=== PATIENT | female | born 1995 | race Caucasian/White ===

== ENCOUNTER 2017-07-09 09:36 | Inpatient (IN) | payer BC, MEDICAID ==
[2017-07-09] MEDS ORDERED: Misoprostol 200 MCG Tab PO PRN (11:47)
[2017-07-09] MEDS ORDERED: Lidocaine 1% 50 ML MDV INJECT PRN (11:47)
[2017-07-09] MEDS ORDERED: Sodium Chloride 0.9% 10 ML Syringe FLUSH PRN ×2 (11:47→12:45)
[2017-07-09] MEDS ORDERED: Water For Irrigation,Sterile 1,000 ML Container IRR PRN (11:47)
[2017-07-09] MEDS ORDERED: Nalbuphine 10 MG/1 ML Vial IVPUSH PRN (11:47)
[2017-07-09] MEDS ORDERED: Methylergonovine 0.2 MG/1 ML Amp IM PRN (11:47)
[2017-07-09] MEDS ORDERED: Butorphanol 1 MG/ML SDV IVPUSH PRN (11:47)
[2017-07-09] MEDS ORDERED: Carboprost Tromethamine 250 MCG/1 ML Amp IM PRN (11:47)
[2017-07-09] MEDS ORDERED: Sodium Chloride 0.9% 2.5 ML Syringe FLUSH PRN ×2 (11:47→12:45)
[2017-07-09] MEDS ORDERED: Oxytocin/0.9 % Sodium Chloride 30 UNIT/500 ML BAG IV SCH ×2 (12:00→20:00)
[2017-07-09] MEDS ORDERED: Ampicillin 2 GM in Sodium Chloride 0.9% 100 ML IV ONE (12:15)
[2017-07-09] MEDS ORDERED: Magnesium Sulfate/Water 4 GM in Premix Bag 1 BAG IV ONE (12:45)
[2017-07-09] MEDS ORDERED: Calcium Gluconate 10% 1 GM/10 ML SDV IV PRN (12:45)
[2017-07-09] MEDS: Lactated Ringers 1,000 ML IV SCH ×2 (12:46→16:25)
[2017-07-09 12:48] LABS: CHLORIDE,CL 105 mmol/L (98-110); SODIUM,NA 137 mmol/L (136-146)
[2017-07-09] MEDS ORDERED: Magnesium Sulfate/Water 100 ML ONE (13:09)
--- NOTE | 2017-07-09 13:10 | PCM.PREANE ---
Preanesthetic Assessment - Anesthesia/Transfusion/Family Hx Anesthesia History: Prior Anesthesia Without Reaction - Review of Systems General: No Symptoms Pulmonary: No Symptoms Cardiovascular: No Symptoms Gastrointestinal: No Symptoms Neurological: No Symptoms Other: Reports: None - Physical Assessment Height: 5 ft 4 in Weight: 73.936 kg ASA Class: 2 Mental Status: Alert & Oriented x3 Airway Class: Mallampati = 2 Dentition: Reports: Normal Dentition Thyro-Mental Finger Breadths: 3 Mouth Opening Finger Breadths: 3 ROM/Head Extension: Full Lungs: Clear to Auscultation, Normal Respiratory Effort Cardiovascular: Regular Rate, Regular Rhythm - Lab Values: Laboratory Last Values WBC 14.29 K/uL (4.0-11.0) H 07/09/17 12:18 RBC 5.06 M/uL (4.30-5.90) 07/09/17 12:18 Hgb 13.3 g/dL (12.0-16.0) 07/09/17 12:18 Hct 41.0 % (36.0-46.0) 07/09/17 12:18 MCV 81.0 fL (80.0-98.0) 07/09/17 12:18 MCH 26.3 pg (27.0-32.0) L 07/09/17 12:18 MCHC 32.4 g/dL (31.0-37.0) 07/09/17 12:18 RDW Std Deviation 40.5 fl (28.0-62.0) 07/09/17 12:18 RDW Coeff of Ulisses 14 % (11.0-15.0) 07/09/17 12:18 Plt Count 269 K/uL (150-400) 07/09/17 12:18 MPV 10.40 fL (7.40-12.00) 07/09/17 12:18 Nucleated RBC % 0.0 /100WBC 07/09/17 12:18 Nucleated RBCs # 0 K/uL 07/09/17 12:18 INR 0.87 (0.86-1.11) 07/09/17 12:18 Fibrinogen 384 mg/dL (215-411) 07/09/17 12:18 Sodium 137 mmol/L (136-146) 07/09/17 12:18 Potassium 3.8 mmol/L (3.5-5.1) 07/09/17 12:18 Chloride 105 mmol/L (98-110) 07/09/17 12:18 Carbon Dioxide 20 mmol/L (21-31) L 07/09/17 12:18 BUN 7 mg/dL (6.0-23.0) 07/09/17 12:18 Creatinine 0.6 mg/dL (0.6-1.5) 07/09/17 12:18 Est Cr Clr Drug Dosing 128.08 mL/min 07/09/17 12:18 Estimated GFR (MDRD) > 60.0 ml/min 07/09/17 12:18 Glucose 103 mg/dL (60-110) 07/09/17 12:18 Uric Acid 4.8 mg/dL (2.1-6.2) 07/09/17 12:18 Calcium 9.1 mg/dL (8.8-10.8) 07/09/17 12:18 Total Bilirubin 0.3 mg/dL (0.1-1.5) 07/09/17 12:18 Direct Bilirubin 0.2 mg/dL (0.0-0.5) 07/09/17 12:18 Indirect Bilirubin 0.1 mg/dL (0.0-1.0) 07/09/17 12:18 AST 17 IU/L (5-40) 07/09/17 12:18 ALT 14 IU/L (8-54) 07/09/17 12:18 Alkaline Phosphatase 176 (40-150) H 07/09/17 12:18 Lactate Dehydrogenase 179 IU/L (125-220) 07/09/17 12:18 Total Protein 6.4 g/dL (6.0-8.0) 07/09/17 12:18 Albumin 3.3 g/dL (3.5-5.0) L 07/09/17 12:18 Globulin 3.1 g/dL (2.0-3.5) 07/09/17 12:18 Albumin/Globulin Ratio 1.1 (1.3-2.8) L 07/09/17 12:18 Urine Color YELLOW 07/09/17 10:45 Urine Appearance CLEAR 07/09/17 10:45 Urine pH 6.0 (5.0-8.0) 07/09/17 10:45 Ur Specific [place] 1.025 (1.001-1.035) 07/09/17 10:45 Urine Protein NEGATIVE mg/dL (NEGATIVE) 07/09/17 10:45 Urine Glucose (UA) NEGATIVE mg/dL (NEGATIVE) 07/09/17 10:45 Urine Ketones NEGATIVE mg/dL (NEGATIVE) 07/09/17 10:45 Urine Occult Blood NEGATIVE (NEGATIVE) 07/09/17 10:45 Urine Nitrite NEGATIVE (NEGATIVE) 07/09/17 10:45 Urine Bilirubin NEGATIVE (NEGATIVE) 07/09/17 10:45 Urine Urobilinogen 0.2 EU/dL (<2.0) 07/09/17 10:45 Ur Leukocyte Esterase SMALL (NEGATIVE) 07/09/17 10:45 - Allergies Allergies/Adverse Reactions: Allergies Allergy/AdvReac Type Severity Reaction Status Date / Time No Known Allergies Allergy Verified 06/26/17 17:23 - Acknowledgements Anesthesia Type Planned: Epidural Pt an Appropriate Candidate for the Planned Anesthesia: Yes Alternatives and Risks of Anesthesia Discussed w Pt/Guardian: Yes Pt/Guardian Understands and Agrees with Anesthesia Plan: Yes PreAnesthesia Questionnaire HEENT History: Reports: None Cardiovascular History: Reports: None Respiratory History: Reports: None Gastrointestinal History: Reports: GERD Genitourinary History: Reports: None [facility] K[facility] STITCHER History: Reports: : 1 Para: 0 LMP (Approximate): Musculoskeletal History: Reports: None Neurological History: Reports: None Psychiatric History: Reports: Anxiety, Depression Endocrine/Metabolic History: Reports: None Hematologic History: Reports: None Immunologic History: Reports: None Oncologic (Cancer) History: Reports: None Dermatologic History: Reports: None - Infectious Disease History Infectious Disease History: Reports: None - CURRENT (IN HOUSE) MEDS Current Meds: Current Medications Butorphanol Tartrate (Stadol) 1 mg IVPUSH Q1H PRN PRN Reason: Pain Calcium Gluconate (Calcium Gluconate) 1 gm IV ASDIRECTED PRN PRN Reason: respiratory distress Carboprost Tromethamine (Hemabate Ds) 250 mcg IM ASDIRECTED PRN PRN Reason: Post Hemorrhage Lactated Ringer's (Ringers, Lactated) 1,000 mls @ 150 mls/hr IV ASDIRECTED JULIANNE Last Admin: 07/09/17 12:46 Dose: 150 mls/hr Oxytocin/Sodium Chloride (Oxytocin 30 Unit/500 Ml-Ns) 30 unit in 500 mls @ 250 mls/hr IV TITRATE JULIANNE Ampicillin Sodium 1 gm/ Sodium (Chloride) 50 mls @ 100 mls/hr IV Q4H JULIANNE Magnesium Sulfate (Magnesium Sulfate 40 Gm In Water 1000 Ml) 40 gm in 1,000 mls @ 50 mls/hr IV ASDIRECTED JULIANNE; 2 GM/HR PRN Reason: Protocol Lidocaine HCl (Xylocaine 1%) 50 ml INJECT .ONCE PRN PRN Reason: Laceration repair Methylergonovine Maleate (Methergine) 0.2 mg IM ASDIRECTED PRN PRN Reason: Post Hemorrhage Misoprostol (Cytotec) 200 mcg PO .ONCE PRN PRN Reason: Post Hemorrhage Nalbuphine HCl (Nubain) 10 mg IVPUSH Q1H PRN PRN Reason: Pain (severe 7-10) Sodium Chloride (Saline Flush) 10 ml FLUSH ASDIRECTED PRN PRN Reason: Keep Vein Open Sodium Chloride (Saline Flush) 2.5 ml FLUSH ASDIRECTED PRN PRN Reason: Keep Vein Open Sodium Chloride (Saline Flush) 10 ml FLUSH ASDIRECTED PRN PRN Reason: Keep Vein Open Sodium Chloride (Saline Flush) 2.5 ml FLUSH ASDIRECTED PRN PRN Reason: Keep Vein Open Sterile Water (Sterile Water For Irrigation) 1,000 ml IRR ASDIRECTED PRN PRN Reason: delivery Discontinued Medications Ampicillin Sodium 2 gm/ Sodium (Chloride) 100 mls @ 200 mls/hr IV ONETIME ONE Stop: 07/09/17 12:44 Last Admin: 07/09/17 12:46 Dose: 200 mls/hr Ampicillin Sodium 1 gm/ Sodium (Chloride) 50 mls @ 100 mls/hr IV Q6H JULIANNE Magnesium Sulfate 4 gm/ Premix 100 mls @ 300 mls/hr IV .BOLUS ONE Stop: 07/09/17 13:04
[2017-07-09] MEDS ORDERED: fentaNYL 100 MCG/2 ML SDV ONE (13:11)
[2017-07-09] MEDS ORDERED: Ropivacaine 100 ML ONE ×2 (13:11→23:40)
[2017-07-09] MEDS: Magnesium Sulfate/Water 40 GM/1,000 ML BAG IV SCH (14:29)
[2017-07-09] MEDS: Ampicillin 1 GM in Sodium Chloride 0.9% 50 ML IV SCH ×2 (16:49→21:14)
[2017-07-09] MEDS ORDERED: Water For Irrigation,Sterile 500 ML Container IRR SCH (18:00)
[2017-07-09] MEDS ORDERED: Ampicillin 1 GM in Sodium Chloride 0.9% 50 ML IV SCH (18:30)
[2017-07-10] MEDS ORDERED: Lanolin 100% Cream 7 GM Tube TOP PRN (00:59)
[2017-07-10] MEDS ORDERED: Benzocaine/Menthol 20%-0.5% Spray 78 GM Cannister TOP PRN (00:59)
[2017-07-10] MEDS ORDERED: Bisacodyl 10 MG Supp RECTAL PRN (00:59)
[2017-07-10] MEDS ORDERED: Witch Hazel Medicated Pads 40/Jar TOP PRN (00:59)
[2017-07-10] MEDS ORDERED: Acetaminophen 500 MG Tab PO PRN ×2 (00:59)
[2017-07-10] MEDS ORDERED: Ibuprofen 400 MG Tab PO PRN (00:59)
[2017-07-10] MEDS ORDERED: oxyCODONE 5 MG Tab PO PRN (00:59)
[2017-07-10] MEDS ORDERED: Docusate Sodium 100 MG Cap PO PRN (00:59)
--- NOTE | 2017-07-10 01:44 | OR ---
SURGEON: KAR MATOS DATE OF PROCEDURE: 07/10/2017 PREOPERATIVE DIAGNOSIS: 22-year-old, G1, P0, at 40 weeks and 2 days, Early labor also with Elevated blood pressures of 150s/90s to 100s. GBS positive. POSTOPERATIVE DIAGNOSIS: Vaginal delivery. GBS positive. Bilateral labial laceration Preeclampsia. ANESTHESIA: Epidural. ESTIMATED BLOOD LOSS: 350. FINDINGS: A live female delivered at 2357 hours. scores 8 and 9. Weight was 3000 grams. Bilateral labial laceration- reparied BRIEF HISTORY: The patient is a 22-year-old, G1, P0, 40 weeks and 2 days, who came in early labor, found to be 6,50, -2. Membranes intact. Also noted to have elevated blood pressure. The patient was started on magnesium for seizure prophylaxis due to elevate BPs 150s -100s . The patient was allowed to receive 2 doses of ampicillin for GBS positive. After 2 doses of ampicillin was given, the patient was ruptured and subsequently Pitocin was started due to inadequate contraction. The patient made appropriate change and became fully dilated around 2315 hours. The patient was encouraged to push. PROCEDURE: With the patient's good pushing effort, The head followed by the anterior and posterior shoulder was delivered and then the body. Delayed cord clamping was observed. Then, the placenta was delivered via controlled cord traction. The perineum was then inspected and bilateral labial laceration was noted, which was sutured. The patient tolerated the procedure well. All instrument and pad counts were correct x2. ANDREA OLIVEROS /[id number] NAZ
[2017-07-10] MEDS ORDERED: Misoprostol 200 MCG Tab PO PRN (02:19)
[2017-07-10] MEDS ORDERED: Misoprostol 50 MCG (1/2 of 100 MCG) Tab RECTAL ONE ×2 (02:19)
[2017-07-10] MEDS ORDERED: Oxytocin/0.9 % Sodium Chloride 30 UNIT/500 ML BAG ONE (02:21)
--- NOTE | 2017-07-10 08:45 | PCM.PNPP ---
- General Info Date of Service: 07/10/17 Admission Dx/Problem (Free Text): 22 yo P1 s/p , on Magnessium for severe preclampsia Subjective Update: Patient seen at bedside , denies headache , BV and RUQ pain . BPs;- 130-150s / 80s- 100s , Normal PIH labs , Functional Status: Reports: Pain Controlled, Tolerating Diet - Review of Systems General: Reports: No Symptoms HEENT: Reports: No Symptoms Pulmonary: Reports: No Symptoms Cardiovascular: Reports: No Symptoms Gastrointestinal: Reports: No Symptoms Genitourinary: Reports: No Symptoms Musculoskeletal: Reports: No Symptoms Skin: Reports: No Symptoms Neurological: Reports: No Symptoms Psychiatric: Reports: No Symptoms - General Info Date of Service: 07/10/17 - Patient Data Weight - Most Recent: 73.936 kg Lab Results - Last 24 Hours: Laboratory Results - last 24 hr 07/09/17 07/09/17 07/09/17 Range/Units 10:45 12:18 12:18 WBC 14.29 H (4.0-11.0) K/uL RBC 5.06 (4.30-5.90) M/uL Hgb 13.3 (12.0-16.0) g/dL Hct 41.0 (36.0-46.0) % MCV 81.0 (80.0-98.0) fL MCH 26.3 L (27.0-32.0) pg MCHC 32.4 (31.0-37.0) g/dL RDW Std Deviation 40.5 (28.0-62.0) fl RDW Coeff of Ulisses 14 (11.0-15.0) % Plt Count 269 (150-400) K/uL MPV 10.40 (7.40-12.00) fL Nucleated RBC % 0.0 /100WBC Nucleated RBCs # 0 K/uL INR (0.86-1.11) Fibrinogen (215-411) mg/dL Sodium (136-146) mmol/L Potassium (3.5-5.1) mmol/L Chloride (98-110) mmol/L Carbon Dioxide (21-31) mmol/L BUN (6.0-23.0) mg/dL Creatinine (0.6-1.5) mg/dL Est Cr Clr Drug Dosing mL/min Estimated GFR (MDRD) ml/min Glucose (60-110) mg/dL Uric Acid (2.1-6.2) mg/dL Calcium (8.8-10.8) mg/dL Magnesium (1.5-2.3) mEq/L Total Bilirubin (0.1-1.5) mg/dL Direct Bilirubin (0.0-0.5) mg/dL Indirect Bilirubin (0.0-1.0) mg/dL AST (5-40) IU/L ALT (8-54) IU/L Alkaline Phosphatase (40-150) Lactate Dehydrogenase (125-220) IU/L Total Protein (6.0-8.0) g/dL Albumin (3.5-5.0) g/dL Globulin (2.0-3.5) g/dL Albumin/Globulin Ratio (1.3-2.8) Urine Color YELLOW Urine Appearance CLEAR Urine pH 6.0 (5.0-8.0) Ur Specific [place] 1.025 (1.001-1.035) Urine Protein NEGATIVE (NEGATIVE) mg/dL Urine Glucose (UA) NEGATIVE (NEGATIVE) mg/dL Urine Ketones NEGATIVE (NEGATIVE) mg/dL Urine Occult Blood NEGATIVE (NEGATIVE) Urine Nitrite NEGATIVE (NEGATIVE) Urine Bilirubin NEGATIVE (NEGATIVE) Urine Urobilinogen 0.2 (<2.0) EU/dL Ur Leukocyte Esterase SMALL (NEGATIVE) Blood Type O POSITIVE Antibody Screen NEGATIVE 07/09/17 07/09/17 07/09/17 Range/Units 12:18 12:18 12:18 WBC (4.0-11.0) K/uL RBC (4.30-5.90) M/uL Hgb (12.0-16.0) g/dL Hct (36.0-46.0) % MCV (80.0-98.0) fL MCH (27.0-32.0) pg MCHC (31.0-37.0) g/dL RDW Std Deviation (28.0-62.0) fl RDW Coeff of Ulisses (11.0-15.0) % Plt Count (150-400) K/uL MPV (7.40-12.00) fL Nucleated RBC % /100WBC Nucleated RBCs # K/uL INR 0.87 (0.86-1.11) Fibrinogen 384 (215-411) mg/dL Sodium 137 (136-146) mmol/L Potassium 3.8 (3.5-5.1) mmol/L Chloride 105 (98-110) mmol/L Carbon Dioxide 20 L (21-31) mmol/L BUN 7 7 (6.0-23.0) mg/dL Creatinine 0.6 0.6 (0.6-1.5) mg/dL Est Cr Clr Drug Dosing 128.08 128.08 mL/min Estimated GFR (MDRD) > 60.0 > 60.0 ml/min Glucose 103 (60-110) mg/dL Uric Acid 4.8 (2.1-6.2) mg/dL Calcium 9.1 (8.8-10.8) mg/dL Magnesium (1.5-2.3) mEq/L Total Bilirubin 0.3 (0.1-1.5) mg/dL Direct Bilirubin 0.2 (0.0-0.5) mg/dL Indirect Bilirubin 0.1 (0.0-1.0) mg/dL AST 17 (5-40) IU/L ALT 14 (8-54) IU/L Alkaline Phosphatase 176 H (40-150) Lactate Dehydrogenase 179 (125-220) IU/L Total Protein 6.4 (6.0-8.0) g/dL Albumin 3.3 L (3.5-5.0) g/dL Globulin 3.1 (2.0-3.5) g/dL Albumin/Globulin Ratio 1.1 L (1.3-2.8) Urine Color Urine Appearance Urine pH (5.0-8.0) Ur Specific [place] (1.001-1.035) Urine Protein (NEGATIVE) mg/dL Urine Glucose (UA) (NEGATIVE) mg/dL Urine Ketones (NEGATIVE) mg/dL Urine Occult Blood (NEGATIVE) Urine Nitrite (NEGATIVE) Urine Bilirubin (NEGATIVE) Urine Urobilinogen (<2.0) EU/dL Ur Leukocyte Esterase (NEGATIVE) Blood Type Antibody Screen 07/09/17 07/09/17 07/10/17 Range/Units 12:59 18:55 00:44 WBC (4.0-11.0) K/uL RBC (4.30-5.90) M/uL Hgb (12.0-16.0) g/dL Hct (36.0-46.0) % MCV (80.0-98.0) fL MCH (27.0-32.0) pg MCHC (31.0-37.0) g/dL RDW Std Deviation (28.0-62.0) fl RDW Coeff of Ulissse (11.0-15.0) % Plt Count (150-400) K/uL MPV (7.40-12.00) fL Nucleated RBC % /100WBC Nucleated RBCs # K/uL INR (0.86-1.11) Fibrinogen (215-411) mg/dL Sodium (136-146) mmol/L Potassium (3.5-5.1) mmol/L Chloride (98-110) mmol/L Carbon Dioxide (21-31) mmol/L BUN (6.0-23.0) mg/dL Creatinine (0.6-1.5) mg/dL Est Cr Clr Drug Dosing mL/min Estimated GFR (MDRD) ml/min Glucose (60-110) mg/dL Uric Acid (2.1-6.2) mg/dL Calcium (8.8-10.8) mg/dL Magnesium 1.4 L 3.2 H 3.9 H (1.5-2.3) mEq/L Total Bilirubin (0.1-1.5) mg/dL Direct Bilirubin (0.0-0.5) mg/dL Indirect Bilirubin (0.0-1.0) mg/dL AST (5-40) IU/L ALT (8-54) IU/L Alkaline Phosphatase (40-150) Lactate Dehydrogenase (125-220) IU/L Total Protein (6.0-8.0) g/dL Albumin (3.5-5.0) g/dL Globulin (2.0-3.5) g/dL Albumin/Globulin Ratio (1.3-2.8) Urine Color Urine Appearance Urine pH (5.0-8.0) Ur Specific [place] (1.001-1.035) Urine Protein (NEGATIVE) mg/dL Urine Glucose (UA) (NEGATIVE) mg/dL Urine Ketones (NEGATIVE) mg/dL Urine Occult Blood (NEGATIVE) Urine Nitrite (NEGATIVE) Urine Bilirubin (NEGATIVE) Urine Urobilinogen (<2.0) EU/dL Ur Leukocyte Esterase (NEGATIVE) Blood Type Antibody Screen 12/29/17 Range/Units 06:51 WBC (4.0-11.0) K/uL RBC (4.30-5.90) M/uL Hgb (12.0-16.0) g/dL Hct (36.0-46.0) % MCV (80.0-98.0) fL MCH (27.0-32.0) pg MCHC (31.0-37.0) g/dL RDW Std Deviation (28.0-62.0) fl RDW Coeff of Ulisses (11.0-15.0) % Plt Count (150-400) K/uL MPV (7.40-12.00) fL Nucleated RBC % /100WBC Nucleated RBCs # K/uL INR (0.86-1.11) Fibrinogen (215-411) mg/dL Sodium (136-146) mmol/L Potassium (3.5-5.1) mmol/L Chloride (98-110) mmol/L Carbon Dioxide (21-31) mmol/L BUN (6.0-23.0) mg/dL Creatinine (0.6-1.5) mg/dL Est Cr Clr Drug Dosing mL/min Estimated GFR (MDRD) ml/min Glucose (60-110) mg/dL Uric Acid (2.1-6.2) mg/dL Calcium (8.8-10.8) mg/dL Magnesium 3.6 H (1.5-2.3) mEq/L Total Bilirubin (0.1-1.5) mg/dL Direct Bilirubin (0.0-0.5) mg/dL Indirect Bilirubin (0.0-1.0) mg/dL AST (5-40) IU/L ALT (8-54) IU/L Alkaline Phosphatase (40-150) Lactate Dehydrogenase (125-220) IU/L Total Protein (6.0-8.0) g/dL Albumin (3.5-5.0) g/dL Globulin (2.0-3.5) g/dL Albumin/Globulin Ratio (1.3-2.8) Urine Color Urine Appearance Urine pH (5.0-8.0) Ur Specific [place] (1.001-1.035) Urine Protein (NEGATIVE) mg/dL Urine Glucose (UA) (NEGATIVE) mg/dL Urine Ketones (NEGATIVE) mg/dL Urine Occult Blood (NEGATIVE) Urine Nitrite (NEGATIVE) Urine Bilirubin (NEGATIVE) Urine Urobilinogen (<2.0) EU/dL Ur Leukocyte Esterase (NEGATIVE) Blood Type Antibody Screen Med Orders - Current: Current Medications Acetaminophen (Tylenol Extra Strength) 500 mg PO Q4H PRN PRN Reason: Pain Acetaminophen (Tylenol Extra Strength) 1,000 mg PO Q4H PRN PRN Reason: Pain Benzocaine/Menthol (Dermoplast Pain Relief 20%-0.5% [place]) 78 gm TOP ASDIRECTED PRN PRN Reason: Perineal Comfort Measure Bisacodyl (Dulcolax) 10 mg RECTAL .ONCE PRN PRN Reason: Constipation Calcium Gluconate (Calcium Gluconate) 1 gm IV ASDIRECTED PRN PRN Reason: respiratory distress Docusate Sodium (Colace) 100 mg PO BID PRN PRN Reason: Constipation Emollient Ointment (Lansinoh Hpa) 0 gm TOP ASDIRECTED PRN PRN Reason: Sore Nipples Oxytocin/Sodium Chloride (Oxytocin 30 Unit/500 Ml-Ns) 30 unit in 500 mls @ 125 mls/hr IV TITRATE [facility] Last Admin: 07/10/17 02:26 Dose: 125 mls/hr Magnesium Sulfate (Magnesium Sulfate 40 Gm In Water 1000 Ml) 40 gm in 1,000 mls @ 50 mls/hr IV ASDIRECTED JULIANNE; 2 GM/HR PRN Reason: Protocol Last Admin: 07/09/17 14:29 Dose: 2 gm/hr, 50 mls/hr Oxytocin/Sodium Chloride (Oxytocin 30 Unit/500 Ml-Ns) 30 unit in 500 mls @ 2 mls/hr IV TITRATE JULIANNE; 2 MUNITS/MIN PRN Reason: Protocol Last Infusion: 07/09/17 21:16 Dose: 8 munits/min, 8 mls/hr Ibuprofen (Motrin) 400 mg PO Q4H PRN PRN Reason: Pain Ibuprofen (Motrin) 800 mg PO Q6H PRN PRN Reason: Pain Methylergonovine Maleate (Methergine) 0.2 mg IM ASDIRECTED PRN PRN Reason: Post Hemorrhage Oxycodone HCl (Oxycodone) 5 mg PO Q2H PRN PRN Reason: Pain Sterile Water (Sterile Water For Irrigation) 500 ml IRR ASDIRECTED [facility] Mayco Vega (Tucks) 1 pad TOP ASDIRECTED PRN PRN Reason: comfort care Discontinued Medications Butorphanol Tartrate (Stadol) 1 mg IVPUSH Q1H PRN PRN Reason: Pain Carboprost Tromethamine (Hemabate Ds) 250 mcg IM ASDIRECTED PRN PRN Reason: Post Hemorrhage Fentanyl (Sublimaze) Confirm Administered Dose 100 mcg .ROUTE .STK-MED ONE Stop: 07/09/17 13:12 Lactated Ringer's (Ringers, Lactated) 1,000 mls @ 150 mls/hr IV ASDIRECTED JULIANNE Last Admin: 07/09/17 16:25 Dose: 150 mls/hr Ampicillin Sodium 2 gm/ Sodium (Chloride) 100 mls @ 200 mls/hr IV ONETIME ONE Stop: 07/09/17 12:44 Last Admin: 07/09/17 12:46 Dose: 200 mls/hr Ampicillin Sodium 1 gm/ Sodium (Chloride) 50 mls @ 100 mls/hr IV Q6H JULIANNE Ampicillin Sodium 1 gm/ Sodium (Chloride) 50 mls @ 100 mls/hr IV Q4H JULIANNE Stop: 07/10/17 00:54 Last Admin: 07/09/17 21:14 Dose: 100 mls/hr Magnesium Sulfate 4 gm/ Premix 100 mls @ 300 mls/hr IV .BOLUS ONE Stop: 07/09/17 13:04 Magnesium Sulfate (Magnesium Sulfate 4 Gm In Water 100 Ml) Confirm Administered Dose 100 mls @ as directed .ROUTE .STK-MED ONE Stop: 07/09/17 13:10 Last Admin: 07/09/17 13:38 Dose: 4 gm Ropivacaine (Naropin 0.2%) Confirm Administered Dose 100 mls @ as directed .ROUTE .STK-MED ONE Stop: 07/09/17 13:12 Ropivacaine (Naropin 0.2%) Confirm Administered Dose 100 mls @ as directed .ROUTE .STK-MED ONE Stop: 07/09/17 23:41 Oxytocin/Sodium Chloride (Oxytocin 30 Unit/500 Ml-Ns) Confirm Administered Dose 30 unit in 500 mls @ as directed .ROUTE .STK-MED ONE Stop: 07/10/17 02:22 Lidocaine HCl (Xylocaine 1%) 50 ml INJECT .ONCE PRN PRN Reason: Laceration repair Misoprostol (Cytotec) 200 mcg PO .ONCE PRN PRN Reason: Post Hemorrhage Misoprostol (Cytotec) 800 mcg PO .ONCE PRN PRN Reason: Post Hemorrhage Last Admin: 07/10/17 02:26 Dose: 800 mcg Nalbuphine HCl (Nubain) 10 mg IVPUSH Q1H PRN PRN Reason: Pain (severe 7-10) Sodium Chloride (Saline Flush) 10 ml FLUSH ASDIRECTED PRN PRN Reason: Keep Vein Open Sodium Chloride (Saline Flush) 2.5 ml FLUSH ASDIRECTED PRN PRN Reason: Keep Vein Open Sodium Chloride (Saline Flush) 10 ml FLUSH ASDIRECTED PRN PRN Reason: Keep Vein Open Sodium Chloride (Saline Flush) 2.5 ml FLUSH ASDIRECTED PRN PRN Reason: Keep Vein Open Sterile Water (Sterile Water For Irrigation) 1,000 ml IRR ASDIRECTED PRN PRN Reason: delivery Last Admin: 07/10/17 00:50 Dose: 1,000 ml - Interaction Support Person: - Recovery Exam Fundal Level: 1 Fingerbreadths Below Umbilicus Fundal Placement: Midline Lochia Amount: Scant Lochia Color: Rubra/Red Episiotomy/Laceration: Approximated - Exam General: Alert, Oriented HEENT: Pupils Equal Lungs: Clear to Auscultation Cardiovascular: Regular Rate, Regular Rhythm GI/Abdominal Exam: Normal Bowel Sounds Extremities: Normal Inspection Wound/Incisions: Healing Well Neurological: No New Focal Deficit - Problem List & Annotations (1) Vaginal delivery SNOMED Code(s): 450465701 Code(s): O80 - ENCOUNTER FOR FULL-TERM UNCOMPLICATED DELIVERY Status: Acute Current Visit: Yes - Problem List Review Problem List Initiated/Reviewed/Updated: Yes - My Orders Last 24 Hours: My Active Orders 07/09/17 10:41 Patient Status [ADT] Routine Non Stress Test [RC] PER UNIT ROUTINE Vaginal Exam [RC] Click to Edit Vital Signs [RC] PER UNIT ROUTINE 07/09/17 11:47 Heart Tones [RC] CONTINUOUS Non Stress Test [RC] PER UNIT ROUTINE May Shower [RC] ASDIRECTED Up ad Shivani [RC] ASDIRECTED Vaginal Exam [RC] PRN Vital Signs [RC] PER UNIT ROUTINE Methylergonovine [Methergine] 0.2 mg IM ASDIRECTED PRN 07/09/17 12:00 Oxytocin/0.9 % Sodium Chloride [Oxytocin 30 Unit/500 ML-NS] 30 unit in 500 ml IV TITRATE 07/09/17 12:45 Bedrest [RC] ASDIRECTED Communication Order [RC] PRN Communication Order [RC] PRN Height and Weight [RC] DAILY Intake and Output [RC] QSHIFT Notify Provider Status Change [RC] ASDIRECTED Notify Provider [RC] PRN Oxygen Therapy [RC] PRN Calcium Gluconate 1 gm IV ASDIRECTED PRN Magnesium Sulfate/Water [Magnesium Sulfate 40 GM in Water 1000 ML] 40 gm in 1, 000 ml IV ASDIRECTED Deep Tendon Reflexes [WOMSER] Q1H Peripheral IV Insertion Adult [OM.PC] Routine 07/09/17 13:45 Deep Tendon Reflexes [WOMSER] Q1H 07/09/17 14:45 Deep Tendon Reflexes [WOMSER] Q1H 07/09/17 15:45 Deep Tendon Reflexes [WOMSER] Q1H 07/09/17 16:45 Deep Tendon Reflexes [WOMSER] Q1H 07/09/17 17:45 Deep Tendon Reflexes [WOMSER] Q1H 07/09/17 18:00 Water For Irrigation,Sterile [Sterile Water for Irrigation] 500 ml IRR ASDIRECTED 07/09/17 18:45 Deep Tendon Reflexes [WOMSER] Q1H 07/09/17 19:45 Deep Tendon Reflexes [WOMSER] Q1H 07/09/17 20:00 Oxytocin/0.9 % Sodium Chloride [Oxytocin 30 Unit/500 ML-NS] 30 unit in 500 ml IV TITRATE 07/09/17 20:45 Deep Tendon Reflexes [WOMSER] Q1H 07/09/17 21:45 Deep Tendon Reflexes [WOMSER] Q1H 07/09/17 22:45 Deep Tendon Reflexes [WOMSER] Q1H 07/09/17 23:45 Deep Tendon Reflexes [WOMSER] Q1H 07/10/17 00:45 Deep Tendon Reflexes [WOMSER] Q1H 07/10/17 00:59 Patient Status [ADT] Routine May Shower [RC] ASDIRECTED Up ad Shivani [RC] ASDIRECTED Vital Signs [RC] PER UNIT ROUTINE Acetaminophen [Tylenol Extra Strength] 1,000 mg PO Q4H PRN Acetaminophen [Tylenol Extra Strength] 500 mg PO Q4H PRN Benzocaine/Menthol [Dermoplast Pain Relief 20%-0.5% [place]] 78 gm TOP ASDIRECTED PRN Bisacodyl [Dulcolax] 10 mg RECTAL .ONCE PRN Docusate Sodium [Colace] 100 mg PO BID PRN Ibuprofen [Motrin] 400 mg PO Q4H PRN Ibuprofen [Motrin] 800 mg PO Q6H PRN Lanolin [Lansinoh HPA] See Dose Instructions TOP ASDIRECTED PRN Witch Silvia [Tucks] 1 pad TOP ASDIRECTED PRN oxyCODONE 5 mg PO Q2H PRN Assess Lochia [WOMSER] Per Unit Routine Assess Uterine Involution [WOMSER] Per Unit Routine Peripheral IV Discontinue [OM.PC] Routine Resuscitation Status Routine 07/10/17 01:45 Deep Tendon Reflexes [WOMSER] Q1H 07/10/17 02:45 Deep Tendon Reflexes [WOMSER] [facility] 07/10/17 03:45 Deep Tendon Reflexes [WOMSER] [facility] 07/10/17 04:45 Deep Tendon Reflexes [WOMSER] [facility] 07/10/17 05:45 Deep Tendon Reflexes [WOMSER] [facility] 07/10/17 06:45 Deep Tendon Reflexes [WOMSER] [facility] 07/10/17 07:45 Deep Tendon Reflexes [WOMSER] [facility] 07/10/17 08:45 Deep Tendon Reflexes [WOMSER] [facility] 07/10/17 09:45 Deep Tendon Reflexes [WOMSER] [facility] 07/10/17 10:45 Deep Tendon Reflexes [WOMSER] [facility] 07/10/17 11:45 Deep Tendon Reflexes [WOMSER] [facility] 07/10/17 12:45 MAGNESIUM [CHEM] Q6H Deep Tendon Reflexes [WOMSER] Q1H 07/10/17 Breakfast Regular Diet [DIET] 07/11/17 05:11 HEMOGLOBIN/HEMATOCRIT,HH [HEME] Timed - Assessment Assessment:: 22 yo P1 s/p PPD1 stable Preclampsia on magnessium BP stable , DTR 2 + , good urine output Normal lochia - Plan Plan:: Continue magnessium for 24 hrs postdelivery BP monitoring q 1-2 hrs Regular diet Routine care
[2017-07-10] MEDS: Magnesium Sulfate/Water 40 GM/1,000 ML BAG IV SCH (09:16)
--- NOTE | 2017-07-10 13:24 | PCM48HPAN ---
Post Anesthesia Note - EVALUATION WITHIN 48HRS OF ANESTHETIC Vital Signs in Normal Range: Yes Patient Participated in Evaluation: Yes Respiratory Function Stable: Yes Airway Patent: Yes Cardiovascular Function Stable: Yes Hydration Status Stable: Yes Pain Control Satisfactory: Yes Nausea and Vomiting Control Satisfactory: Yes Mental Status Recovered: Yes
[2017-07-10] MEDS: Ibuprofen 800 MG Tab PO PRN ×2 (13:27→20:53)
--- NOTE | 2017-07-11 11:26 | PCM.PNPP ---
- General Info Date of Service: 07/11/17 Functional Status: Reports: Pain Controlled, Tolerating Diet, Ambulating, Urinating - Review of Systems General: Denies: Fever, Malaise, Chills HEENT: Denies: Headaches, Visual Changes Pulmonary: Denies: Shortness of Breath, Pleuritic Chest Pain Cardiovascular: Denies: Chest Pain, Palpitations, Dyspnea on Exertion Gastrointestinal: Denies: Abdominal Pain Genitourinary: Denies: Dysuria, Urgency, Incontinence, Retention Musculoskeletal: Reports: No Symptoms Skin: Reports: No Symptoms Neurological: Reports: No Symptoms Psychiatric: Reports: No Symptoms - General Info Date of Service: 07/11/17 - Patient Data Vital Signs - Most Recent: Last Vital Signs Temp 37.3 C 07/11/17 09:30 Pulse 73 07/11/17 09:30 Resp 22 H 07/11/17 09:30 BP 91/49 L 07/11/17 09:30 Pulse Ox 98 07/11/17 09:30 Weight - Most Recent: 161 lb 6.054 oz I&O - Last 24 Hours: Intake & Output 07/10/17 07/11/17 07/11/17 22:59 06:59 14:59 Intake Total 996 Output Total 1800 Balance -804 Lab Results - Last 24 Hours: Laboratory Results - last 24 hr 07/10/17 07/11/17 Range/Units 12:55 05:35 Hgb 11.8 L (12.0-16.0) g/dL Hct 36.8 (36.0-46.0) % Magnesium 3.7 H (1.5-2.3) mEq/L Med Orders - Current: Current Medications Acetaminophen (Tylenol Extra Strength) 500 mg PO Q4H PRN PRN Reason: Pain Last Admin: 07/10/17 09:18 Dose: 500 mg Acetaminophen (Tylenol Extra Strength) 1,000 mg PO Q4H PRN PRN Reason: Pain Benzocaine/Menthol (Dermoplast Pain Relief 20%-0.5% [place]) 78 gm TOP ASDIRECTED PRN PRN Reason: Perineal Comfort Measure Last Admin: 07/11/17 00:50 Dose: 78 gm Bisacodyl (Dulcolax) 10 mg RECTAL .ONCE PRN PRN Reason: Constipation Docusate Sodium (Colace) 100 mg PO BID PRN PRN Reason: Constipation Last Admin: 07/10/17 20:55 Dose: 100 mg Emollient Ointment (Lansinoh Hpa) 0 gm TOP ASDIRECTED PRN PRN Reason: Sore Nipples Last Admin: 07/11/17 00:50 Dose: 7 gm Oxytocin/Sodium Chloride (Oxytocin 30 Unit/500 Ml-Ns) 30 unit in 500 mls @ 125 mls/hr IV TITRATE JULIANNE Last Admin: 07/10/17 02:26 Dose: 125 mls/hr Oxytocin/Sodium Chloride (Oxytocin 30 Unit/500 Ml-Ns) 30 unit in 500 mls @ 2 mls/hr IV TITRATE JULIANNE; 2 MUNITS/MIN PRN Reason: Protocol Last Infusion: 07/10/17 00:30 Dose: Infused Ibuprofen (Motrin) 400 mg PO Q4H PRN PRN Reason: Pain Ibuprofen (Motrin) 800 mg PO Q6H PRN PRN Reason: Pain Last Admin: 07/10/17 20:53 Dose: 800 mg Methylergonovine Maleate (Methergine) 0.2 mg IM ASDIRECTED PRN PRN Reason: Post Hemorrhage Oxycodone HCl (Oxycodone) 5 mg PO Q2H PRN PRN Reason: Pain Last Admin: 07/10/17 13:27 Dose: 5 mg Sterile Water (Sterile Water For Irrigation) 500 ml IRR ASDIRECTED [facility] Mayco Vega (Tuckchristopher) 1 pad TOP ASDIRECTED PRN PRN Reason: comfort care Last Admin: 07/11/17 00:50 Dose: 1 pad Discontinued Medications Butorphanol Tartrate (Stadol) 1 mg IVPUSH Q1H PRN PRN Reason: Pain Calcium Gluconate (Calcium Gluconate) 1 gm IV ASDIRECTED PRN PRN Reason: respiratory distress Carboprost Tromethamine (Hemabate Ds) 250 mcg IM ASDIRECTED PRN PRN Reason: Post Hemorrhage Fentanyl (Sublimaze) Confirm Administered Dose 100 mcg .ROUTE .STK-MED ONE Stop: 07/09/17 13:12 Last Admin: 07/10/17 09:52 Dose: Not Given Lactated Ringer's (Ringers, Lactated) 1,000 mls @ 150 mls/hr IV ASDIRECTED [facility] Last Admin: 07/09/17 16:25 Dose: 150 mls/hr Ampicillin Sodium 2 gm/ Sodium (Chloride) 100 mls @ 200 mls/hr IV ONETIME ONE Stop: 07/09/17 12:44 Last Admin: 07/09/17 12:46 Dose: 200 mls/hr Ampicillin Sodium 1 gm/ Sodium (Chloride) 50 mls @ 100 mls/hr IV Q6H JULIANNE Ampicillin Sodium 1 gm/ Sodium (Chloride) 50 mls @ 100 mls/hr IV Q4H JULIANNE Stop: 07/10/17 00:54 Last Admin: 07/09/17 21:14 Dose: 100 mls/hr Magnesium Sulfate 4 gm/ Premix 100 mls @ 300 mls/hr IV .BOLUS ONE Stop: 07/09/17 13:04 Last Admin: 07/10/17 09:51 Dose: Not Given Magnesium Sulfate (Magnesium Sulfate 40 Gm In Water 1000 Ml) 40 gm in 1,000 mls @ 50 mls/hr IV ASDIRECTED JULIANNE; 2 GM/HR PRN Reason: Protocol Last Admin: 07/10/17 09:16 Dose: 2 gm/hr, 50 mls/hr Magnesium Sulfate (Magnesium Sulfate 4 Gm In Water 100 Ml) Confirm Administered Dose 100 mls @ as directed .ROUTE .STK-MED ONE Stop: 07/09/17 13:10 Last Admin: 07/09/17 13:38 Dose: 4 gm Ropivacaine (Naropin 0.2%) Confirm Administered Dose 100 mls @ as directed .ROUTE .STK-MED ONE Stop: 07/09/17 13:12 Last Admin: 07/10/17 09:51 Dose: Not Given Ropivacaine (Naropin 0.2%) Confirm Administered Dose 100 mls @ as directed .ROUTE .STK-MED ONE Stop: 07/09/17 23:41 Last Admin: 07/10/17 09:52 Dose: Not Given Oxytocin/Sodium Chloride (Oxytocin 30 Unit/500 Ml-Ns) Confirm Administered Dose 30 unit in 500 mls @ as directed .ROUTE .STK-MED ONE Stop: 07/10/17 02:22 Last Admin: 07/10/17 09:52 Dose: Not Given Lidocaine HCl (Xylocaine 1%) 50 ml INJECT .ONCE PRN PRN Reason: Laceration repair Misoprostol (Cytotec) 200 mcg PO .ONCE PRN PRN Reason: Post Hemorrhage Misoprostol (Cytotec) 800 mcg PO .ONCE PRN PRN Reason: Post Hemorrhage Last Admin: 07/10/17 02:26 Dose: 800 mcg Nalbuphine HCl (Nubain) 10 mg IVPUSH Q1H PRN PRN Reason: Pain (severe 7-10) Sodium Chloride (Saline Flush) 10 ml FLUSH ASDIRECTED PRN PRN Reason: Keep Vein Open Sodium Chloride (Saline Flush) 2.5 ml FLUSH ASDIRECTED PRN PRN Reason: Keep Vein Open Sodium Chloride (Saline Flush) 10 ml FLUSH ASDIRECTED PRN PRN Reason: Keep Vein Open Sodium Chloride (Saline Flush) 2.5 ml FLUSH ASDIRECTED PRN PRN Reason: Keep Vein Open Sterile Water (Sterile Water For Irrigation) 1,000 ml IRR ASDIRECTED PRN PRN Reason: delivery Last Admin: 07/10/17 00:50 Dose: 1,000 ml - Infant Interaction Infant Disposition, : [place] in Room with Family Feeding: Breastfed Infant; Nursed Well Support Person: - Recovery Exam Fundal Tone: Firm Fundal Level: At Umbilicus Fundal Placement: Midline Lochia Amount: Scant Lochia Color: Rubra/Red Perineum Description: Intact, Minimal Bruising/Swelling Other Perinuem Description: Bilateral labial laceration Episiotomy/Laceration: Approximated Bladder Status: Nonpalpable, Voiding Urinary Elimination: Voided - Exam General: Alert, Oriented HEENT: Pupils Equal Neck: Supple Lungs: Clear to Auscultation, Normal Respiratory Effort GI/Abdominal Exam: Normal Bowel Sounds Extremities: Normal Inspection, Non-Tender, Pedal Edema Skin: Warm Neurological: No New Focal Deficit Psy/Mental Status: Alert, Normal Affect, Normal Mood - Problem List & Annotations (1) Vaginal delivery SNOMED Code(s): 218740637 Code(s): O80 - ENCOUNTER FOR FULL-TERM UNCOMPLICATED DELIVERY Status: Acute Current Visit: Yes - Problem List Review Problem List Initiated/Reviewed/Updated: Yes - Assessment Assessment:: PPD#2 s/p and MgSO4 for preeclampsia, stable and afebrile Normal BP and asymptomatic for S/S of preecalmpsia - Plan Plan:: Discharge instructions reviewed Nothing in the vagina for 6 weeks Bleeding and infection precautions reviewed Preeclampsia precautions reviewed and discussed Blues and depression S/S reviewed Continue PNV OTC pains meds as needed Follow up in the clinic, [facility], in 1 week for BP check and 6 weeks for routine pp visit
== END 2017-07-11 13:00 | disposition home or self-care (01) | DRG 560 ==
LOC: MW.OBCHECK 09:36 → MW.OB 09:38 → MW.OBCHECK 11:47 → MW.OB 12:01 → OBSVTOIN 07-10 → MW.OB 07-10 06:30 → MW.MS 07-10 17:40
PROVIDERS: ADMIT Obstetrics & Gynecology; ATTEND Obstetrics & Gynecology
PROC: 10E0XZZ Delivery of Products of Conception, External Approach (ICD-10-PCS; principal; 2017-07-10)
PROC: 0HQ9XZZ Repair Perineum Skin, External Approach (ICD-10-PCS; 2017-07-10)
DX: O14.94 Unspecified pre-eclampsia, complicating childbirth (principal); O70.0 First degree perineal laceration during delivery; Z3A.40 40 weeks gestation of pregnancy; Z37.0 Single live birth
CPT/HCPCS: 01967; 01996; 36415; 51702; 59025; 59409; 80048; 80076; 81003; 82565; 83615; 83735; 84520; 84550; 85014; 85018; 85027; 85384; 85610; 86850; 86900; 86901; A9270-GY; J0290; J2590; J2795; J3010; J3475; J7030; J7050; J7120